=== PATIENT | male | born 1995 | race Hispanic/Latino ===

== ENCOUNTER 2017-12-12 01:17 | Emergency (ER) | payer SELFPAY ==
[2017-12-12 01:32] VITALS: BP 134/71; PULSE 62; RESP 18; TEMP 98.5; O2SAT 99
[2017-12-12] MEDS ORDERED: Lidocaine Hydrochloride 5 ML INJ ONE (01:45)
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
== END 2017-12-12 02:21 | disposition home or self-care (01) ==
LOC: C.ER 01:17
DX: S01.511A Laceration without foreign body of lip, initial encounter (principal); S09.93XA Unspecified injury of face, initial encounter; Y04.0XXA Assault by unarmed brawl or fight, initial encounter